=== PATIENT | female | born 1980 | race Caucasian/White ===

== ENCOUNTER 2017-10-01 23:01 | Emergency (ER) | payer OTHER ==
--- NOTE | 2017-10-01 23:13 | CPEKG ---
Heart Rate: 57 RR Interval: 1053 P-R Interval: 152 QRSD Interval: 74 QT Interval: 416 QTC Interval: 405 P Ryan: 49 QRS Ryan: 59 T Wave Ryan: 49 EKG Severity - NORMAL ECG - EKG Impression: SINUS RHYTHM Electronically Signed By: Alexx Jones 02-Oct-2017 03:11:18
--- NOTE | 2017-10-01 23:22 | EDPHY ---
H & P Stated Complaint: extra heart beats while at rest Time Seen by Provider: 10/01/17 23:12 HPI/ROS: Chief Complaint: Palpitations, 29 weeks HPI: 37-year-old who is currently 29 weeks with a verified intrauterine . Patient was sitting on the couch an hour ago when she started feeling extra beats. She did not have any pain. Her heart rate did not seem to increase. She is not having any shortness of breath. She has not had any leg pain or swelling. The baby has been moving. She has not been having any abdominal cramping. No recent illness. No fevers or chills. No cough. No nausea or vomiting. Has had increasing urination associated with the but no dysuria or any changes recently. Patient is still feeling some extra beats at this time. ROS: 10 point Review of Systems is negative except as noted in the HPI. PMH: Denies Social History: No smoking, no alcohol, no recreational drug use Family History: non-contributory Physical Exam: Gen: Awake, Alert, No Distress HEENT: Nose: no rhinorrhea Eyes: PERRLA, EOMI Mouth: Moist mucosa Neck: Supple, no JVD Chest: nontender, lungs clear to auscultation Heart: S1, S2 normal, no murmur Abd: Soft, non-tender, gravid uterus consistent with dates Back: no CVA tenderness, no midline tenderness Ext: no edema, non-tender Skin: no rash Neuro: CN II-XII intact, Sensation grossly intact, Strength 5/5 in bilateral upper and lower extremities - Personal History LMP (Females 10-55): Current Tetanus/Diphtheria Vaccine: Yes Current Tetanus Diphtheria and Acellular Pertussis (TDAP): Yes - Medical/Surgical History Hx Asthma: No Hx Chronic Respiratory Disease: No Hx Diabetes: No Hx Cardiac Disease: No Hx Renal Disease: No Hx Cirrhosis: No Hx Alcoholism: No Hx HIV/AIDS: No Hx Splenectomy or Spleen Trauma: No Other PMH: none - Social History Smoking Status: Never smoked Constitutional: Initial Vital Signs Heart Rate 56 L 10/01/17 23:15 Respiratory Rate 16 10/01/17 23:15 Blood Pressure 114/81 H 10/01/17 23:15 O2 Sat (%) 99 10/01/17 23:15 O2 Delivery Mode Room Air Allergies/Adverse Reactions: No Known Allergies Allergy (Unverified 10/01/17 23:14) Home Medications: Medication Instructions Recorded NK [No Known Home Meds] 10/01/17 Medical Decision Making - Diagnostics EKG Interpretation: ECG time 2311 p.m., sinus rhythm with a rate of 57, normal axis, normal intervals, no acute ST or T-wave changes. Impression: Normal ECG. Procedures: Procedure: A limited transabdominal ultrasound was performed on this patient. The indication for the study was evaluate heart rate. Patient has a known IUP at 29 weeks gestation On the examination I found that there was an IUP. heart tones were 156. Results of the exam: Positive for IUP. Images were saved on the ultrasound database. The examination was performed and interpreted by myself. ED Course/Re-evaluation: 37-year-old woman who is 29 weeks with palpitations. She is feeling them in the emergency department. There is no ectopy on her ECG or rhythm strip. Bedside ultrasound by me shows a normal heart tones of 156. There is normal movement. ECG is normal. Electrolytes and LFTs are normal. CBC is normal. There is no proteinuria on her UA. There are no concerning findings at this time. Patient is comfortable. Will discharge with follow up with her OBGYN, return for any concerns. - Data Points Laboratory Results: Laboratory Results 10/01/17 23:17 10/01/17 23:17 10/01/17 10/01/17 10/01/17 23:30 23:17 23:17 WBC 8.70 10^3/uL 10^3/uL (3.80-9.50) RBC 3.76 10^6/uL L 10^6/uL (4.18-5.33) Hgb 12.6 g/dL g/dL (12.6-16.3) Hct 36.2 % L % (38.0-47.0) MCV 96.3 fL fL (81.5-99.8) MCH 33.5 pg pg (27.9-34.1) MCHC 34.8 g/dL g/dL (32.4-36.7) RDW 12.4 % % (11.5-15.2) Plt Count 148 10^3/uL L 10^3/uL (150-400) MPV 10.2 fL fL (8.7-11.7) Neut % (Auto) 69.5 % % (39.3-74.2) Lymph % (Auto) 21.5 % % (15.0-45.0) Frio % (Auto) 6.4 % % (4.5-13.0) Eos % (Auto) 0.9 % % (0.6-7.6) Baso % (Auto) 0.6 % % (0.3-1.7) Nucleat RBC Rel Count 0.0 % % (0.0-0.2) Absolute Neuts (auto) 6.04 10^3/uL 10^3/uL (1.70-6.50) Absolute Lymphs (auto) 1.87 10^3/uL 10^3/uL (1.00-3.00) Absolute Monos (auto) 0.56 10^3/uL 10^3/uL (0.30-0.80) Absolute Eos (auto) 0.08 10^3/uL 10^3/uL (0.03-0.40) Absolute Basos (auto) 0.05 10^3/uL 10^3/uL (0.02-0.10) Absolute Nucleated RBC 0.00 10^3/uL 10^3/uL (0-0.01) Immature Gran % 1.1 % % (0.0-1.1) Immature Gran # 0.10 10^3/uL 10^3/uL (0.00-0.10) Sodium 139 mEq/L mEq/L (135-145) Potassium 3.7 mEq/L mEq/L (3.5-5.2) Chloride 108 mEq/L mEq/L (97-110) Carbon Dioxide 22 mEq/l mEq/l (22-31) Anion Gap 9 mEq/L mEq/L (8-16) BUN 9 mg/dL mg/dL (7-23) Creatinine 0.7 mg/dL mg/dL (0.6-1.0) Estimated GFR > 60 Glucose 87 mg/dL mg/dL (70-100) Calcium 8.8 mg/dL mg/dL (8.5-10.4) Total Bilirubin < 0.1 mg/dL L mg/dL (0.1-1.4) AST 40 IU/L IU/L (14-46) ALT 42 IU/L IU/L (9-52) Alkaline Phosphatase 70 IU/L IU/L (38-126) Total Protein 5.9 g/dL L g/dL (6.3-8.2) Albumin 3.1 g/dL L g/dL (3.5-5.0) Urine Color PALE YELLOW Urine Appearance CLEAR Urine pH 7.0 (5.0-7.5) Ur Specific Beasley 1.002 (1.002-1.030) Urine Protein NEGATIVE (NEGATIVE) Urine Ketones NEGATIVE (NEGATIVE) Urine Blood NEGATIVE (NEGATIVE) Urine Nitrate NEGATIVE (NEGATIVE) Urine Bilirubin NEGATIVE (NEGATIVE) Urine Urobilinogen NEGATIVE EU EU (0.2-1.0) Ur Leukocyte Esterase NEGATIVE (NEGATIVE) Urine Glucose NEGATIVE (NEGATIVE) Departure - Departure Disposition: Home, Routine, Self-Care Clinical Impression: Palpitations Condition: Good Instructions: Heart Palpitations (ED) Additional Instructions: Follow up with your OBGYN in 2-3 days for further evaluation. Return to the emergency department for chest pain, shortness of breath, fainting , abdominal cramping, decreased movement, or any other concerns. Referrals: Rosa Warren MD [Primary Care Provider] - As per Instructions
[2017-10-01 23:27] LABS: PLATELET COUNT 148 10^3/uL (150-400)
[2017-10-02 00:15] VITALS: BP 100/64; PULSE 57; RESP 19; TEMP 99; O2SAT 96
== END 2017-10-02 00:26 | disposition home or self-care (01) ==
DX: O99.89 Other specified diseases and conditions complicating pregnancy, childbirth and the puerperium (principal); R00.2 Palpitations; Z3A.29 29 weeks gestation of pregnancy

== ENCOUNTER 2017-12-09 19:17 | Inpatient (IN) | payer OTHER ==
[2017-12-09] MEDS ORDERED: LIDOCAINE 1% 300 MG/30 ML SDV ONE (22:02)
[2017-12-09] MEDS ORDERED: OLIVE OIL 118 ML BTL ONE (22:02)
[2017-12-09] MEDS ORDERED: TERBUTALINE SULFATE 1 MG/ML VIAL ONE (22:02)
[2017-12-09] MEDS ORDERED: AMMONIA AROMATIC 1 EACH AMP IH ONE (22:02)
[2017-12-09] MEDS ORDERED: OXYTOCIN 10 UNIT/ML VIAL ONE (22:03)
[2017-12-09] MEDS ORDERED: MISOPROSTOL 200 MCG TAB ONE (22:03)
[2017-12-09] MEDS ORDERED: OXYTOCIN/NORMAL SALINE 1,000 ML IV PRN (22:09)
[2017-12-09] MEDS ORDERED: TERBUTALINE SULFATE 1 MG/ML VIAL IV PRN (22:09)
[2017-12-09] MEDS ORDERED: EPSOM SALT 454 GM TP PRN (22:09)
[2017-12-09] MEDS ORDERED: LIDOCAINE 1% 300 MG/30 ML SDV SC PRN (22:09)
[2017-12-09] MEDS ORDERED: MISOPROSTOL 200 MCG TAB PO PRN (22:09)
[2017-12-09] MEDS ORDERED: AMMONIA AROMATIC 1 EACH AMP IH PRN (22:09)
[2017-12-09] MEDS ORDERED: LR 1,000 ML IV PRN (22:09)
[2017-12-09] MEDS ORDERED: OLIVE OIL 118 ML BTL MISC PRN (22:09)
--- NOTE | 2017-12-09 22:25 | PDGENHP ---
History and Physical - Chief Complaint gush of fluid at 1530 today - History of Present Illness 37 G1 at 39w5d by LMP c/w 7 wk US noted a gush of clear fluid at 1530 today. Has continued to leak fluid. No contractions. Good movement. NO ssx PIH. has been complicated by: AMA - has declined all genetic testing, had normal anatomy scan, except for marginal cord insertion. Marginal cord insertion - had growth scan at 32 wk, EFW = 16%ile S<D at 38wk - US 9%ile growth. Concern for IUGR. US repeated yesterday and uterine artery dopplers done and reviewed with MFM, recommended proceed with induction at 40 wk Hx of LEEP and cryo x 2 - had normal cervical length (3.5cm) at 20 week scan. labs: GBS neg A pos Ab scre neg RPR - NR Rubella Imm HBsAG neg HIV neg Pap wnl UA and U cx neg Gonorrhea neg Chlamydia neg History Information - Allergies/Home Medication List Allergies/Adverse Reactions: No Known Allergies Allergy (Verified 12/09/17 22:25) Home Medications: Vit 6-Finv-Tptzi-Dha [Elite Ob Dha Softgel] 12/09/17 [Last Taken 12/09] Probiotic 12/09/17 [Last Taken 12/09/17] I have personally reviewed and updated: family history, medical history, social history, surgical history Past Medical History: Migraines. hx of pyelonephritis - Surgical History Additional surgical history: LEEP x 1, cryotherapy to cervix x 2, wisdom teeth - Social History Smoking Status: Never smoked Alcohol Use: None Drug Use: None Review of Systems Review of Systems: ROS: 10pt was reviewed & negative except for what was stated in HPI & below Physical Exam Physical Exam: 36.8 55 103/57 FHR 125 reactive, cat 1, mod variability, + accels abd - gravid, soft, NT Constitutional: no apparent distress Eyes: PERRL Ears, Nose, Mouth, Throat: moist mucous membranes Cardiovascular: regular rate and rhythym, no murmur, rub, or gallop Respiratory: no respiratory distress, no rales or rhonchi Skin: warm Musculoskeletal: full muscle strength Neurologic: AAOx3 Psychiatric: interacting appropriately Assessment & Plan Assessment: 37 yo G1 at 39w5d by LMP c/w 7 wk US with PROM now x 7 hours and no signs of labor. Uncomplicated course. Cephalic by US yesterday. Favorable cervix by check in office 3 days ago. Plan: Admit. Prefers trying natural methods of stimulating labor, such as nipple stimulation right now. Willing to start pitocin if no labor after 12 hours - ie 0330. B/R/A of pitocin discussed. Had US in office yesterday which confirmed cephalic presentation and cervica check 3 d ago was favorable.
[2017-12-09 22:59] LABS: PLATELET COUNT 154 10^3/uL (150-400)
[2017-12-10] MEDS ORDERED: OXYTOCIN/NORMAL SALINE 30 UNIT/500 ML BAG IV ONE (03:38)
[2017-12-10] MEDS ORDERED: LR 500 ML IV PRN (05:36)
[2017-12-10] MEDS ORDERED: OXYTOCIN/NORMAL SALINE 500 ML IV SCH (06:00)
--- NOTE | 2017-12-10 07:28 | OBPROG ---
Labor Progress Note Assessment/Plan: Assessment: 37 yo G1 at 39w6d with PROM x16 hours, undergoing pitocin induction , has made great progress. Plan: Anticipate 2nd stage with pushing soon. Report given to Dr. Ilsa Chapa. 12/10/17 07:24 Subjective/Intrapartum Course: 12/10/17 07:26 Pt doing well, getting very uncomfortable with contractions but has been coping and breathing through them well. Objective: 12/09/17 22:40 Patient ABO/Rh A POSITIVE 12/09/17 22:40 gen - pleasant, visibly uncomfortable with contractions, in NAD without a contraction abd - soft, gravid, fundus NT when not alex - SVE Dilation (cm): 9 Effacement (%): 100 Station: 0 Membranes: SROM Amniotic Fluid Color: Clear - Contraction Pattern Assessment Current Contraction Pattern: Regular - FHR Assessment Twin A FHR (bpm): 130 FHR Pattern Variability: Moderate FHR Category: 1 Oxytocin Orders Assessment - Pre-Induction/Augmentation Assessment Presentation: Vertex Gestational Age: 39 week(s) and 4 day(s) Gestational Age Determined By: Last Menstral Period Estimated Weight: 2501-3400g Membrane Status: Ruptured Current Contraction Pattern: Regular - Heart Rate Pattern Twin A FHR Baseline (bpm): 130 FHR Category: 1 FHR Pattern Variability: Moderate FHR Accelerations: Present FHR Decelerations: Variable ICD10 Worksheet Patient Problems: Problems Problem Status Onset IUGR, Acute PROM (premature rupture of membranes) Acute - ICD10 Problem Qualifiers (1) IUGR, (2) PROM (premature rupture of membranes) Qualifiers: PROM onset of labor timing: onset of labor within 24 hours of rupture PROM gestational age: -third trimester Qualified Code(s): O42.013 - premature rupture of membranes, onset of labor within 24 hours of rupture, third trimester
[2017-12-10] MEDS ORDERED: DOCUSATE SODIUM 100 MG CAP PO PRN (08:39)
[2017-12-10] MEDS ORDERED: HYDROCORTISONE 0.5% CREAM TP PRN (08:39)
[2017-12-10] MEDS ORDERED: SIMETHICONE 80 MG TAB CHEW PO PRN (08:39)
[2017-12-10] MEDS ORDERED: ACETAMINOPHEN 325 MG TAB PO PRN (08:39)
--- NOTE | 2017-12-10 08:46 | OBDEL ---
Info Type: Vaginal Presentation at Delivery: Vertex L&D Analgesia/Anesthesia Type: None GBS+: No Intrapartum Medications: Generic Name Dose Route Start Last Admin Trade Name Freq PRN Reason Stop Dose Admin Lactated Ringer's 1,000 mls @ 0 mls/hr 12/09/17 22:09 12/10/17 03:45 Lr IV 12/10/17 22:08 1,000 mls PRN PRN Administration SEE PROTOCOL CONDITIONS Protocol Per Protocol Oxytocin/Sodium Chloride 500 mls @ 0 mls/hr 12/10/17 06:00 12/10/17 03:45 Pitocin 30 Units/Ns (Premix) IV 06/08/18 05:59 500 mls CONT SHANNEN Administration Protocol Per Protocol - Hospital Course Intrapartum: 12/10/17 07:26 Pt doing well, getting very uncomfortable with contractions but has been coping and breathing through them well. Indications for Delivery: SROM Vaginal Delivery - Delivery Provider Delivery Physician/CNM: Roseline Lewis - Labor and Delivery Onset of Contractions Date: 12/10/17 Onset of Contractions Time: 04:00 Onset of Contractions Type: Induced Rupture of Membranes Date: 12/09/17 Rupture of Membranes Time: 15:30 Rupture of Membranes Type: Premature Amniotic Fluid Color: Clear Dilation Complete Date: 12/10/17 Dilation Complete Time: 07:43 Placenta Delivery Date: 12/10/17 Placenta Delivery Time: 08:17 Total Hours of Labor: 4 Laceration: 2nd Degree Repair: 3-0, Vicryl Vaginal Sponge Count Correct: Yes Vaginal Needle Count Correct: Yes Vaginal Sweep Performed: Yes EBL: 350 Delivery Events: None - Medications Labor Augmentation/Induction Methods Used: Pitocin Labor Augmentation/Induction Indication: Contraction Strength Inadequate, Inadequate Ctx Strength Mitchell Data TAD: 12/12/17 Gestational Age: 39 week(s) and 5 day(s) Twin A Delivery Date: 12/10/17 Delivery Time: 08:11 Sex of Infant: Male Score (1 Min): 8 Score (5 Min): 9 ICD10 Worksheet Patient Problems: Problems Problem Status Onset IUGR, Acute PROM (premature rupture of membranes) Acute (spontaneous vaginal delivery) Acute - ICD10 Problem Qualifiers (1) IUGR, (2) PROM (premature rupture of membranes) Qualifiers: PROM onset of labor timing: onset of labor within 24 hours of rupture PROM gestational age: -third trimester Qualified Code(s): O42.013 - premature rupture of membranes, onset of labor within 24 hours of rupture, third trimester (3) (spontaneous vaginal delivery)
--- NOTE | 2017-12-10 09:03 | PDMN ---
Medical Necessity Medical necessity: C/M review: Patient [place] IN[place] [facility] [id number] Vaginal delivery: viable male .
[2017-12-10] MEDS: IBUPROFEN 600 MG TAB PO PRN (20:22)
--- NOTE | 2017-12-11 11:31 | OBPP ---
Progress Note Assessment/Plan: Assessment: 37 yo G1 at 39w6d with PROM x16 hours, undergoing pitocin induction , has made great progress. Plan: Anticipate 2nd stage with pushing soon. Report given to Dr. Ilsa Chapa. 12/10/17 07:24 12/11/17 11:28 A: PPD#1 s/p unmedicated - doing great P: routine pp cares. Anticipate dc home tomorrow. Subjective/ Course: 12/11/17 11:27 Doing well, feels great. Working on - baby had low blood sugars. Ambulating and voiding without difficulty. Mod lochia. Objective: 12/09/17 22:40 Patient ABO/Rh A POSITIVE 12/09/17 22:40 Temp Pulse Resp BP Pulse Ox 36.7 C 65 18 112/77 96 12/11/17 08:00 12/11/17 08:00 12/11/17 08:00 12/11/17 08:00 12/11/17 08:00 gen - pleasant, NAD cv - rrr chest - ctAB ext - calves NT, no edema Uterine Position/Fundal Height: Umbilicus -3 Uterine Tone: Firm
[2017-12-11] MEDS: IBUPROFEN 600 MG TAB PO PRN ×2 (14:28→21:16)
[2017-12-11 23:46] VITALS: BP 114/78
== END 2017-12-12 17:06 | disposition home or self-care (01) | DRG 775 ==
LOC: FLD 19:17 → OBSVTOIN 23:36 → FOB 12-10 14:21
PROVIDERS: ADMIT Obstetrics & Gynecology; ATTEND Hospitalist
DX: O42.02 Full-term premature rupture of membranes, onset of labor within 24 hours of rupture (principal); O70.1 Second degree perineal laceration during delivery; Z3A.39 39 weeks gestation of pregnancy; Z37.0 Single live birth
CPT/HCPCS: J2590; J3105

== ENCOUNTER → 2018-12-27 | Outpatient (CLI) | payer OTHER | LOC: FIMAGING 15:26 | PROVIDERS: ATTEND Family Medicine | DX: R10.11 Right upper quadrant pain (principal) ==